=== PATIENT | female | born 1970 | race Caucasian/White ===

== ENCOUNTER 2016-07-22 13:57 | Emergency (ER) | payer OTHER ==
[~2016-07-22] VITALS: Ht 170.2 cm; Wt 112.8 kg
[~2016-07-22 13:57] MED LIST: ALEVE220 MG PO; LEVOTHYROXINE75 MCG PO; PRISTIQ100 MG PO; TIROSINT75 MCG PO; XARELTO15 MG PO; ZOLOFT100 MG PO; ZONEGRAN100 M1 PO
[2016-07-22 16:50] VITALS: BP 113/83
== END 2016-07-22 17:03 | disposition home or self-care (01) ==
LOC: EME 13:57
DX: R51 Headache (principal); Z87.891 Personal history of nicotine dependence; Z88.8 Allergy status to other drugs, medicaments and biological substances; Z88.5 Allergy status to narcotic agent; Z91.041 Radiographic dye allergy status; E03.9 Hypothyroidism, unspecified; Z86.718 Personal history of other venous thrombosis and embolism; Z86.711 Personal history of pulmonary embolism; Z86.79 Personal history of other diseases of the circulatory system; Z79.01 Long term (current) use of anticoagulants
CPT/HCPCS: 70450; 99281; 99284

== ENCOUNTER → 2016-08-17 | Outpatient (CLI) | payer OTHER | END | disposition home or self-care (01) | LOC: RES 08:43 | DX: F45.8 Other somatoform disorders (principal) | CPT/HCPCS: 94060; 94726; 94729 ==

== ENCOUNTER 2017-07-21 11:45 | Emergency (ER) | payer OTHER ==
[~2017-07-21] VITALS: Ht 170.2 cm; Wt 104.5 kg
[2017-07-21 13:23] LABS: HEMATOCRIT 44.4 % (36.0-46.0); HEMOGLOBIN 14.9 G/DL (11.9-15.5); MCH 29.6 PG (29.0-34.0); MCHC 33.6 G/DL (30.0-36.0); MCV 88.3 FL (83-99); PLATELET COUNT 276 K/uL (156-360); RBC DIS.WIDTH-CV 14.9 % (11.8-14.6); RBC DIS.WIDTH-SD 48.4 % (39-53); RED BLOOD COUNT 5.03 M/uL (3.80-5.20); WHITE BLOOD COUNT 8.5 K/uL (4.1-10.2)
[2017-07-21 13:33] LABS: CHLORIDE 110 mEq/L (99-109); POTASSIUM 5.2 mEq/L (3.7-5.4); SODIUM 143 mEq/L (136-147)
[2017-07-21 13:35] LABS: GLUCOSE 102 mg/dL (70-99)
[2017-07-21 13:39] LABS: CREATININE 0.9 mg/dL (0.6-1.3); GFR ESTIMATE (CALCULATED) > 59 mL/min/
[2017-07-21 13:40] LABS: UREA NITROGEN (BUN) 9 mg/dL (9-23)
[2017-07-21 14:56] LABS: INTER. NORMALIZED RATIO 1.5
[2017-07-21 14:58] LABS: PTT 32.2 SEC (25-37)
[2017-07-21] MEDS ORDERED: XARELTO20 MG PO (15:19)
[2017-07-21] MEDS ORDERED: LAMICTAL100 MG PO (15:21)
[2017-07-21] MEDS ORDERED: FISH OIL DR 1,1 EAC1 PO (15:22)
[2017-07-21] MEDS ORDERED: ATORVASTATIN CA10 MG PO (15:23)
[2017-07-21 17:20] VITALS: BP 120/71
== END 2017-07-21 17:20 | disposition short-term general hospital (02) ==
LOC: EME 11:45
PROVIDERS: Emergency Medicine
DX: I61.8 Other nontraumatic intracerebral hemorrhage (principal); I60.9 Nontraumatic subarachnoid hemorrhage, unspecified; R53.1 Weakness; Q28.2 Arteriovenous malformation of cerebral vessels; Z86.718 Personal history of other venous thrombosis and embolism; Z86.711 Personal history of pulmonary embolism; F32.9 Major depressive disorder, single episode, unspecified; Z88.5 Allergy status to narcotic agent; Z87.891 Personal history of nicotine dependence
CPT/HCPCS: 70450; 80048; 85027; 85610; 85730; 99281; 99285; C9132; J2765; J3030